=== PATIENT | male | born 1960 | race Caucasian/White ===

== ENCOUNTER 2021-04-23 17:01 | Observation (INO) | payer OTHER ==
[~2021-04-23] VITALS: Ht 160 cm; Wt 75.0 kg
[2021-04-23] MEDS ORDERED: BACTRIM DS TAB1 EAC1 PO (17:17)
[2021-04-23] MEDS ORDERED: PAXIL20 MG PO (17:18)
[2021-04-23 18:06] LABS: BASOPHILS 0.4 % (0-2); EOSINOPHILS 0.2 % (0-7); HEMATOCRIT 40.7 % (42.0-54.0); HEMOGLOBIN 13.4 g/dL (13.5-17.5); LYMPHOCYTES 19.8 % (15-50); MCH 29.9 pg (26.0-34.0); MCV 90.7 fL (80.0-100.0); MEAN PLATELET VOLUME 8.7 fL (7.4-10.4); MONOCYTES 8.7 % (2-11); NEUTROPHILS 70.9 % (40-80); PLATELET COUNT 157 10x3/uL (130-400); RBC 4.49 10x6/uL (4.20-6.10); RDW 14.8 % (11.5-14.5); WBC 6.1 10x3/uL (4.8-10.8)
[2021-04-23 18:12] LABS: ANION GAP 13.4 mmol/L (8-16); CALCIUM 8.5 mg/dL (8.5-10.1); CARBON DIOXIDE 26.1 mmol/L (21.0-32.0); CREATININE - SERUM 1.3 mg/dL (0.6-1.3); POTASSIUM - SERUM 4.5 mmol/L (3.5-5.1)
[2021-04-23 18:17] LABS: ALBUMIN 3.7 g/dL (3.4-5.0); BILIRUBIN - TOTAL 0.63 mg/dL (0.2-1.3)
--- NOTE | 2021-04-23 19:22 | NUR ---
URINE SENT TO LAB
[2021-04-23 19:34] LABS: BILIRUBIN NEGATIVE (NEGATIVE); KETONE TRACE mg/dL (< 1+); NITRITE NEGATIVE (NEGATIVE); SQUAMOUS EPITHELIAL <1 HPF (0-4); UROBILINOGEN 2 mg/dL (< 2); WHITE CELLS - URINE 3 HPF (0-1)
[2021-04-23 19:35] LABS: BACTERIA FEW HPF (<MOD)
[2021-04-23 19:36] LABS: GRANULAR CAST 5 LPF (0-1)
[2021-04-23 20:00] VITALS: BP 104/67
[2021-04-23 20:00] LABS: C-REACTIVE PROTEIN 24.7 mg/dL (0.0-0.9)
[2021-04-23 20:24] LABS: INFLUENZA TYPE A NEGATIVE (NEGATIVE); INFLUENZA TYPE B NEGATIVE (NEGATIVE); SARS-CoV-2 ANTIGEN NEGATIVE- SARS-COV-2 (NEGATIVE)
[2021-04-23 21:00] VITALS: BP 102/65
[2021-04-23 21:02] LABS: UDS - AMPHET NEGATIVE QUAL (NEGATIVE); UDS - BARB NEGATIVE QUAL (NEGATIVE); UDS - BENZO NEGATIVE QUAL (NEGATIVE); UDS - COCAINE NEGATIVE QUAL (NEGATIVE); UDS - OPIATE NEGATIVE QUAL (NEGATIVE); UDS - PCP NEGATIVE QUAL (NEGATIVE); UDS - THC NEGATIVE QUAL (NEGATIVE)
--- NOTE | 2021-04-23 21:43 | NUR ---
PT GIVEN ICE CHIPS, DENIES FURTHER NEEDS. CALL LIGHT IN REACH.
[2021-04-23 22:00] VITALS: BP 101/76
[2021-04-23] MEDS ORDERED: DOVATO (22:33)
[2021-04-23] MEDS ORDERED: TIVICAY50 MG PO (22:34)
[2021-04-23] MEDS ORDERED: EPIVIR150 MG PO (22:37)
[2021-04-23] MEDS ORDERED: EPIVIR300 MG PO (22:39)
[2021-04-23 23:00] VITALS: BP 103/68
--- NOTE | 2021-04-23 23:18 | NUR ---
PT PARKING ENFORCER LIGHT. PT REQUESTING LIGHTS BE TURNED OFF SO HE CAN SLEEP. LIGHT TURNED OFF, HEAD OF BED ADJUSTED TO LEVEL OF COMFORT. PT DENIES PAIN OR OTHER COMPLAINTS. CALL LIGHT IN REACH.
[2021-04-24] VITALS (7 sets, daily range): BP systolic 84–111; BP diastolic 52–77; Ht 160 cm; Wt 75.0 kg
--- NOTE | 2021-04-24 00:13 | NUR ---
PT IV MIRANDA FINISHED
--- NOTE | 2021-04-24 02:49 | NUR ---
PT IV 1000ML NS BOLUS FINISHED.
--- NOTE | 2021-04-24 07:51 | NUR ---
AWAKE AND ALERT. DENIES PAIN OR NAUSEA AT PRESENT. BREAKFAST SEVERED. SAT SELF TO SIDE OF BED TO SELF FEED BREAKFAST. WILL CON'T TO MONITOR.
--- NOTE | 2021-04-24 08:53 | NUR ---
ULTRA SOUND HERE TO DO TESST.
--- NOTE | 2021-04-24 11:30 | NUR ---
PT UP TO RESTROOM C/O NAUSEA AND PAIN, CALL TO [facility] FOR ORDERS . DR. CHONG CALLED BACK ORDERS RECEIVED AND CARRIED OUT.
--- NOTE | 2021-04-24 12:13 | NUR ---
PT RESTING IN BED. CALL WITHIN REACH. CONT. TO MONITOR.
[2021-04-25 04:00] VITALS: BP 114/69
[2021-04-25 09:52] VITALS: BP 187/69
[2021-04-25 11:20] VITALS: BP 101/54
[2021-04-25] MEDS ORDERED: COLACE100 MG PO (12:10)
[2021-04-25] MEDS ORDERED: TRAMADOL HCL E100 M1 PO (12:10)
--- NOTE | 2021-04-25 13:30 | NUR ---
PATIENT MOTHER STATED SHE DID NOT FEEL COMFORTABLE TAKING PATIENT HOME TODAY AND WOULD LIKE FOR HIM TO STAY ANOTHER NIGHT. PAGED DR OSORIO WELL DR MAE, PER DR OSORIO HE IS OK WITH IT WELL DR MAE, WILL DC PATIENT FIRST THING IN THE MORNING. CONTINUE WITH PLAN OF CARE
--- NOTE | 2021-04-25 14:44 | NUR ---
I have reviewed this patient and I concur with the Shift Assessment completed by the Licensed Practical Nurse today this shift.
--- NOTE | 2021-04-25 14:54 | OP ---
PATIENT NAME: CAMERON MARTINEZ MEDICAL RECORD: [id number] :60 LOCATION:[facility] ADMISSION DATE:04/23/21 SURGEON: ULYSSES MAE MD DATE OF OPERATION: 04/25/2021 PREOPERATIVE DIAGNOSIS: Symptomatic gallstones. POSTOPERATIVE DIAGNOSES: Symptomatic gallstones with hepatomegaly. PROCEDURES: 1. Laparoscopic cholecystectomy. 2. Intraoperative cholangiography without immediate surgeon interpretation. 3. An 18-gauge core needle liver biopsy. SURGEON: Ulysses Mae MD GROOMING SALON MANAGER: None. BLOOD LOSS: Minimal. ANESTHESIA: General. COMPLICATIONS: None. The risks, possible complications, and alternatives of procedure were explained to the patient. He elects to proceed. The discussion specifically included, but was not limited to, bleeding requiring emergency reoperation, infection, intestinal injury as well as common bile duct injury. OPERATIVE COURSE: The patient was conveyed to the operating room electively on 04/25/2021. General anesthesia was induced by the anesthesia staff. The abdomen was sterilely prepped and draped. A midline incision was accomplished within the umbilicus. There was a small umbilical hernia present. There was incarcerated fat, which was excised. Stay sutures of 0 Vicryl were placed on either side of the hernia defect, which was lengthened. Through this fascial lengthening I advanced a 12-mm trocar. CO2 insufflation was begun. Once a sufficient pneumoperitoneum had been achieved 3 more trocars were inserted. These were 5-mm trocars. One was inserted in the epigastrium, another one in the right upper quadrant, and another one far laterally in the right upper quadrant. During insertion of all the trocars, there was no apparent injury to any bowels, any intraperitoneal or retroperitoneal structures. An abdominal survey was undertaken. The liver was enlarged. The indication for the liver biopsy was hepatomegaly. Under laparoscopic guidance, I percutaneously accessed the right upper quadrant utilizing an 18-gauge core biopsy device. Cores were obtained over the convexity of the liver. The biopsy sites were made hemostatic with electrocautery. I then advanced a cholangiogram trocar. I punctured the fundus of the gallbladder. I aspirated bile. I then injected dye. Under real time fluoroscopy static fluoroscopic images were obtained. These are clean. Angiographic images, which were sent to the radiologist for interpretation. I then aspirated bile and removed the cholangiogram trocar. The gallbladder was grasped and retracted cephalad. The infundibulum was grasped and retracted laterally. Blunt dissection was begun in the triangle of OPERATIVE REPORT [id number] CAMERON MARTINEZ. Two cystic arteries and one cystic duct were identified. These were clipped multiply and divided between clips. The gallbladder was then excised from its bed in the liver. It was placed within a bag retrieval device and was withdrawn through the umbilical fascial defect. A 12-mm trocar was replaced and the abdomen reinsufflated. I irrigated and aspirated the right upper quadrant. There was no bleeding even at low pressure of 8. All the trocars were removed and the abdomen desufflated. The fascia at the umbilicus was closed with horizontal mattress 0 Vicryl suture. I then tied the 2 stay sutures together as well. The subdermis of the umbilicus was approximated with a 3-0 Vicryl. The skin was approximated with interrupted 4-0 Vicryl Rapide sutures. At the 5-mm trocar sites interrupted intracuticular 3-0 Vicryls were placed. Benzoin and Steri-Strips were applied. The patient was then extubated and conveyed to post-anesthesia care unit where he was in stable condition. From my standpoint, he can be dismissed home on [place]. I would like to see him in my office in 2 to 3 weeks. TRANSINT:[id number] Voice Confirmation ID: [id number] DOCUMENT ID: [id number] ULYSSES MAE MD at 1454 CC: ALEN OSORIO MD and JOHN BRAND MD [id number] DICTATION DATE: 04/25/21 1040 JET WIPER: 04/25/21 1446 ADM IN [facility] [address] [place] [address]
[2021-04-25 17:08] VITALS: BP 105/66
[2021-04-25 20:00] VITALS: BP 116/75
--- NOTE | 2021-04-25 23:15 | NUR ---
I have reviewed this patient and I concur with the Shift Assessment completed by the Licensed Practical Nurse today this shift.
[2021-04-26] VITALS: BP 114/74
[2021-04-26 04:00] VITALS: BP 126/79
[2021-04-26 09:23] VITALS: BP 126/70
== END 2021-04-26 09:30 | disposition home or self-care (01) ==
LOC: D.ER 17:01 → OBSVTIME 22:30 → D.EDHOLD 22:30 → D.MS 22:30
PROVIDERS: Emergency Medicine; Family Medicine; ADMIT Emergency Medicine; ATTEND Emergency Medicine
DX: K80.80 Other cholelithiasis without obstruction (principal); R16.0 Hepatomegaly, not elsewhere classified; R11.2 Nausea with vomiting, unspecified; R53.1 Weakness; B20 Human immunodeficiency virus [HIV] disease